=== PATIENT | female | born 1995 | race Caucasian/White ===

== ENCOUNTER 2016-08-24 19:27 | Emergency (ER) | payer OTHER ==
[~2016-08-24] VITALS: Ht 170.2 cm; Wt 89.4 kg
[2016-08-24] MEDS ORDERED: IBUP-1022 PO (19:37)
[2016-08-24] MEDS ORDERED: NORCO, ANEXSIA 5/325MG TABLET (HYDROcodone/ACETAMINOPHEN) PO ONE (20:15)
[2016-08-24] MEDS ORDERED: predniSONE 20 MG TAB PO ONE (20:15)
[2016-08-24] MEDS ORDERED: KETOROLAC 60 MG/2 ML VIAL (J1885) IM ONE (20:15)
[2016-08-24] MEDS ORDERED: MIRA3350 PO (22:24)
[2016-08-24 22:31] VITALS: BP 126/78
--- NOTE | 2016-08-24 22:59 | REP ---
Clinical: Pain . Technique: AP, lateral, bilateral oblique, and coned-down views. Findings: Alignment and lordosis is maintained. The vertebral bodies including transverse process and spinous processes are intact and normal. There is no evidence for acute fracture / compression injury or subluxation. No evidence for spondylolysis or spondylolisthesis. No significant degenerative change is noted. Impression: Normal lumbosacral spine radiograph series. Signed by Garrett Dey MD 08/24/2016 10:51 P
== END 2016-08-24 22:35 | disposition home or self-care (01) ==
LOC: M ED 19:27
DX: M54.5 Low back pain (principal); G89.29 Other chronic pain; K59.00 Constipation, unspecified; F43.10 Post-traumatic stress disorder, unspecified
CPT/HCPCS: 72110; 81025; 96372; 99283; J1885

== ENCOUNTER 2017-01-25 19:35 | Emergency (ER) | payer OTHER ==
[~2017-01-25] VITALS: Ht 170.2 cm; Wt 90.9 kg
[~2017-01-25 19:35] MED LIST: IBUP-1022 PO; MIRA3350 PO
[2017-01-25] MEDS ORDERED: MAGICMW SSP (21:13)
[2017-01-25] MEDS ORDERED: AMOX875T PO (21:13)
[2017-01-25] MEDS ORDERED: FLON1SPR (21:13)
[2017-01-25] MEDS ORDERED: AMOXICILLIN 500 MG CAP PO ONE (21:15)
[2017-01-25] MEDS ORDERED: MAGIC MOUTHWASH SUSPENSION BTL SS ONE (21:15)
[2017-01-25 21:19] VITALS: BP 128/72
== END 2017-01-25 21:30 | disposition home or self-care (01) ==
LOC: M ED 19:35
DX: J01.90 Acute sinusitis, unspecified (principal); H66.93 Otitis media, unspecified, bilateral; F41.9 Anxiety disorder, unspecified; F43.10 Post-traumatic stress disorder, unspecified